=== PATIENT | female | born 1955 | race Two or more races ===

== ENCOUNTER 2024-08-02 15:10 | Outpatient (CLI) | payer OTHER | END 2024-08-02 15:18 | disposition home or self-care (01) | LOC: RAD 15:10 | DX: M54.50 Low back pain, unspecified (principal); M25.551 Pain in right hip ==

== ENCOUNTER 2024-12-26 09:11 | Outpatient (CLI) | payer OTHER | END 2024-12-26 09:27 | disposition home or self-care (01) | LOC: MRI 09:11 | PROVIDERS: ATTEND Orthopaedic Surgery | DX: M75.122 Complete rotator cuff tear or rupture of left shoulder, not specified as traumatic (principal); M25.511 Pain in right shoulder; M17.12 Unilateral primary osteoarthritis, left knee; M76.822 Posterior tibial tendinitis, left leg; M76.72 Peroneal tendinitis, left leg | CPT/HCPCS: 73223 ==

== ENCOUNTER 2024-12-26 12:10 | Outpatient (CLI) | payer OTHER ==
[2024-12-26 13:06] LABS: CREATININE SERUM 0.79 mg/dL (0.55-1.02)
== END 2024-12-26 12:31 | disposition home or self-care (01) ==
LOC: LAB 12:10
PROVIDERS: ATTEND Orthopaedic Surgery
DX: M75.122 Complete rotator cuff tear or rupture of left shoulder, not specified as traumatic (principal)